=== PATIENT | male | born 1955 | race Caucasian/White ===

== ENCOUNTER 2020-05-06 14:26 | Inpatient (IN) | payer MEDICARE, BC ==
[~2020-05-06] VITALS: Ht 170.2 cm; Wt 69.9 kg
[2020-05-06] MEDS ORDERED: NAMENDA (14:37)
[2020-05-06] MEDS ORDERED: ATOR20TA PO (14:37)
[2020-05-06] MEDS ORDERED: CARB-92 PO (14:37)
--- NOTE | 2020-05-06 14:48 | NUR ---
[email or web address], medical screening exam in progress
[2020-05-06] MEDS ORDERED: LIDOCAINE 5% PATCH TD ONE (15:00)
[2020-05-06] MEDS ORDERED: ACETAMINOPHEN 325 MG TABLET PO ONE (15:00)
[2020-05-06] MEDS ORDERED: KETOROLAC TROMETHAMINE 15 MG INJ IVP ONE (15:45)
[2020-05-06 16:07] LABS: BASOPHILS # (AUTO) 0.1 K/uL (0.0-8.0); BASOPHILS % (AUTO) 1.1 % (0.0-2.0); EOSINOPHILS # (AUTO) 0.1 K/uL (0.0-0.7); EOSINOPHILS % (AUTO) 1.2 % (0.0-7.0); HEMATOCRIT 39.6 % (36.7-47.1); HEMOGLOBIN 13.7 g/dL (12.5-16.3); LYMPHOCYTES # (AUTO) 1.5 K/uL (20.0-40.0); LYMPHOCYTES % (AUTO) 21.8 % (20.5-51.5); MEAN CORPUSCULAR HEMOGLOBIN 35.1 uug (23.8-33.4); MEAN CORPUSCULAR HGB CONC 35 g/dL (32.5-36.3); MEAN CORPUSCULAR VOLUME 101.5 fL (73.0-96.2); MONOCYTES # (AUTO) 0.6 K/uL (2.0-10.0); MONOCYTES % (AUTO) 9.2 % (0.0-11.0); NEUTROPHILS # (AUTO) 4.5 K/uL (1.8-8.9); NEUTROPHILS % (AUTO) 66.7 % (38.5-71.5); PLATELET COUNT (AUTO) 146 K/uL (152-348); WHITE BLOOD COUNT (AUTO) 6.7 K/uL (3.6-10.2)
[2020-05-06 16:11] LABS: CREATININE 1.2 mg/dL (0.6-1.3)
[2020-05-06] MEDS ORDERED: ACETAMINOPHEN 325 MG TABLET PO PRN (16:30)
[2020-05-06] MEDS ORDERED: ONDANSETRON 4 MG/2 ML VIAL IV PRN (16:30)
[2020-05-06] MEDS ORDERED: HYDROCODONE/APAP 10-325 MG TABLET PO PRN (16:30)
[2020-05-06] MEDS ORDERED: MAGNESIUM HYDROXIDE 30 ML LIQUID UDC PO PRN (16:30)
[2020-05-06] MEDS ORDERED: HYDROCODONE/APAP 5-325MG TABLET PO PRN (16:30)
--- NOTE | 2020-05-06 16:33 | NUR ---
MARY [email or web address], evaluating this patient.
--- NOTE | 2020-05-06 16:47 | NUR ---
Patient will go to medical-surgical floor instead of telemetry unit per MARY Nagy. Nursing playground supervisor [facility] & 3rd floor charger tester Merlie are aware.
--- NOTE | 2020-05-06 18:19 | NUR ---
Patient is eating hot dinner tray with good appetite. Patient is calm with facial grimacing noted with body position changes and deep breathing.
--- NOTE | 2020-05-06 18:29 | NUR ---
Patient is c/o severe left rib pains, pain scale=7-8/10, worse with position changes. Medicated accordingly. Maintained on continuous spO2 & BP monitors w/ alarms set, on & audible. Comfort & safety measures observed.
[2020-05-06] MEDS: HYDROMORPHONE 1 MG/1 ML DISP.SYRIN IV PRN (18:32)
--- NOTE | 2020-05-06 19:00 | NUR ---
Assumed care of patient at this time. Patient is more comfortable at this time after pain medication. Patient is pending admission to medr unit after change of shift.
--- NOTE | 2020-05-06 20:20 | NUR ---
Pt. admitted to Med/Surg, under care of Saundra Nagy. Diagnosis: Left Rib Fracture Belongs List completed. Report given. Patient transferred to inpatient unit.
--- NOTE | 2020-05-06 20:45 | NUR ---
Patient brought to med-surg floor from ER via gurney accompanied by staff nurse.Patient alert, oriented x4.No s/s of distress noted.on RA.IV on Left hand 20 g.Patent and intact.No s/s of infiltration.C/o sharp pain on left rib.Pain medication given as ordered.Skin assessment done.Noted with skin abrasion on bilateral shoulder.No skin breakdown.Patient able to ambulates to bathroom.SAfety measures are in place.Call light and belongings are with in reach.Will continue to monitor.
[2020-05-06 21:00] VITALS: BP 144/76
[2020-05-06] MEDS ORDERED: MEMANTINE HCL 5 MG TABLET PO SCH (21:00)
[2020-05-07] MEDS: HYDROMORPHONE 1 MG/1 ML DISP.SYRIN IV PRN ×2 (02:11→08:06)
[2020-05-07 04:00] VITALS: BP 131/75
--- NOTE | 2020-05-07 06:27 | NUR ---
Patient slept well.No apparent distress noted at this time.Call light with in reach .All needs anticipated and met accordingly.
[2020-05-07 06:44] LABS: BASOPHILS % (AUTO) 0.6 % (0.0-2.0); EOSINOPHILS # (AUTO) 0.3 K/uL (0.0-0.7); EOSINOPHILS % (AUTO) 6.7 % (0.0-7.0); HEMATOCRIT 38.3 % (36.7-47.1); HEMOGLOBIN 13.1 g/dL (12.5-16.3); LYMPHOCYTES # (AUTO) 1.6 K/uL (20.0-40.0); LYMPHOCYTES % (AUTO) 36.1 % (20.5-51.5); MEAN CORPUSCULAR HEMOGLOBIN 34.9 uug (23.8-33.4); MEAN CORPUSCULAR HGB CONC 34 g/dL (32.5-36.3); MEAN CORPUSCULAR VOLUME 102.2 fL (73.0-96.2); MONOCYTES # (AUTO) 0.5 K/uL (2.0-10.0); MONOCYTES % (AUTO) 11.6 % (0.0-11.0); NEUTROPHILS # (AUTO) 1.9 K/uL (1.8-8.9); PLATELET COUNT (AUTO) 127 K/uL (152-348); RED BLOOD CELL COUNT(AUTO) 3.75 MIL/uL (4.06-5.63); WHITE BLOOD COUNT (AUTO) 4.3 K/uL (3.6-10.2)
[2020-05-07 07:00] LABS: BILIRUBIN,TOTAL 0.8 mg/dL (0.2-1.0); CREATININE 1.2 mg/dL (0.6-1.3); MAGNESIUM 2.3 mg/dL (1.8-2.4); PHOSPHOROUS 4.2 mg/dL (2.5-4.9); POTASSIUM 3.8 mmol/L (3.5-5.1); TOTAL PROTEIN, SERUM 6.3 g/dL (6.4-8.2)
[2020-05-07] MEDS ORDERED: CARBIDOPA/LEVODOPA 10-100MG TABLET PO SCH (09:00)
[2020-05-07] MEDS ORDERED: ATORVASTATIN 20 MG TABLET PO SCH ×2 (09:00→21:00)
[2020-05-07] MEDS ORDERED: ACET325T53 PO (10:10)
[2020-05-07] MEDS ORDERED: HYDR-3980 PO (10:10)
[2020-05-07] MEDS ORDERED: HYDR-3972 PO (10:10)
[2020-05-07 11:25] VITALS: BP 111/73
--- NOTE | 2020-05-07 12:03 | NUR ---
Pt AAOx4. Discharge to home orders in place. Vital signs stable. Pain managed appropriately with PRN medication. No s/s of acute distress. Exit care and education provided regarding new prescription and continuity of care. ID and IV band removed.
== END 2020-05-07 12:00 | disposition home or self-care (01) | DRG 206 ==
LOC: ER 14:26 → MEDSURG3 20:16
PROVIDERS: ADMIT Nurse Practitioner Acute Care; ATTEND Nurse Practitioner Acute Care
PROC: 2W3CX1Z Immobilization of Right Lower Arm using Splint (ICD-10-PCS; principal; 2020-05-06)
DX: S22.32XA Fracture of one rib, left side, initial encounter for closed fracture (principal); S06.9X9A Unspecified intracranial injury with loss of consciousness of unspecified duration, initial encounter; S52.501A Unspecified fracture of the lower end of right radius, initial encounter for closed fracture; V18.4XXA Pedal cycle driver injured in noncollision transport accident in traffic accident, initial encounter; Y93.55 Activity, bike riding; Y92.89 Other specified places as the place of occurrence of the external cause; G20 Parkinson's disease; I25.10 Atherosclerotic heart disease of native coronary artery without angina pectoris; R06.03 Acute respiratory distress; E78.5 Hyperlipidemia, unspecified; Z86.73 Personal history of transient ischemic attack (TIA), and cerebral infarction without residual deficits; R40.2362 Coma scale, best motor response, obeys commands, at arrival to emergency department; R40.2142 Coma scale, eyes open, spontaneous, at arrival to emergency department; R40.2252 Coma scale, best verbal response, oriented, at arrival to emergency department
CPT/HCPCS: 36415; 70450; 71045; 71250; 73110; 83735; 84100; 85025; 93005; A4663; G0378; J1170; J1885